=== PATIENT | female | born 1980 | race Caucasian/White ===

== ENCOUNTER 2018-02-18 22:26 | Inpatient (IN) | payer OTHER ==
[~2018-02-18] VITALS: Ht 157.5 cm; Wt 66.2 kg
[2018-02-18] MEDS ORDERED: RINGERS SOLUTION,LACTATED 1,000 ML IV PRN (22:52)
[2018-02-18] MEDS ORDERED: OXYTOCIN 30 UNITS/LACT RINGERS 500 ML IV ONE (22:52)
[2018-02-18] MEDS ORDERED: AMPICILLIN SODIUM 2 GM/NS 100 ML IV ONE (23:00)
[2018-02-18] MEDS ORDERED: LIDOCAINE/PF 1% 30 ML VIAL INJ PRN (23:00)
[2018-02-18] MEDS ORDERED: FentaNYL CITRATE-PF 100 MCG/2 ML VIAL IVP PRN (23:00)
[2018-02-18] MEDS ORDERED: METHYLERGONOVINE MALEATE 0.2 MG/ML VIAL IM PRN (23:00)
[2018-02-18] MEDS ORDERED: CITRIC ACID/SODIUM CITRATE 30 ML SOLUTION UDCUP PO PRN (23:00)
[2018-02-18] MEDS ORDERED: BETAMETHASONE SOLUSPAN 6 MG/ML 5 ML VIAL IM SCH (23:00)
[2018-02-18] MEDS ORDERED: METOCLOPRAMIDE HCL 5 MG/ML 2 ML VIAL IVP PRN (23:00)
[2018-02-18 23:32] VITALS: BP 106/64
[2018-02-18] MEDS: RINGERS SOLUTION,LACTATED 1,000 ML IV SCH (23:35)
[2018-02-18] MEDS ORDERED: prenatal vit PO (23:36)
[2018-02-19 00:05] LABS: BASOPHILS % (AUTO) 0.4 % (0.0-2.0); EOSINOPHILS % (AUTO) 0.4 % (1.0-6.0); HEMATOCRIT 32.9 % (36-46); HEMOGLOBIN 11.3 g/dL (12.0-16.0); LYMPHOCYTES # (AUTO) 1.5 K/uL (1.0-4.8); LYMPHOCYTES % (AUTO) 13.1 % (22.0-44.0); MEAN CORPUSCULAR HEMOGLOBIN 31.4 pg (26.0-34.0); MEAN CORPUSCULAR HGB CONC 34.3 G/dL (31.0-37.0); MEAN CORPUSCULAR VOLUME 92 fL (80-100); MONOCYTES # (AUTO) 0.9 K/uL (0.1-1.0); MONOCYTES % (AUTO) 7.4 % (2.0-9.0); NEUTROPHILS # (AUTO) 9.2 K/uL (1.8-7.7); NEUTROPHILS % (AUTO) 78.7 % (40.0-70.0); PLATELET COUNT (AUTO) 241 K/uL (150-450); RED BLOOD CELL COUNT(AUTO) 3.59 MIL/uL (4.00-5.20)
[2018-02-19] MEDS ORDERED: ROPIVACAINE HCL/PF 0.2% 100 ML ED ONE (00:52)
[2018-02-19] MEDS ORDERED: LIDOCAINE/PF 2% 5 ML VIAL ONE (00:52)
[2018-02-19] MEDS: RINGERS SOLUTION,LACTATED 1,000 ML IV SCH ×2 (00:55→02:49)
[2018-02-19] MEDS ORDERED: NALBUPHINE HCL 10 MG/ML VIAL IVP PRN (01:30)
[2018-02-19] MEDS ORDERED: ONDANSETRON HCL 4 MG/2 ML VIAL IVP PRN (01:30)
[2018-02-19] MEDS ORDERED: DiphenhydrAMINE HCL 50 MG/ML VIAL IVP PRN (01:30)
[2018-02-19] MEDS ORDERED: ROPIVACAINE HCL/PF 0.2% 100 ML ED PRN (01:30)
[2018-02-19] MEDS ORDERED: AMPICILLIN SODIUM 1 GM/NS 50 ML IV SCH (03:00)
[2018-02-19] MEDS ORDERED: IBUPROFEN 800 MG TABLET PO PRN (08:00)
[2018-02-19] MEDS ORDERED: OxyCODONE HCL/ACETAMINOPHEN 5-325 MG TABLET PO PRN ×2 (08:00)
[2018-02-19] MEDS ORDERED: MAGNESIUM HYDROXIDE SUSPENSION 30 ML UDCUP PO PRN (08:00)
[2018-02-19] MEDS ORDERED: GLYCERIN/WITCH HAZEL LEAF 40 PADS JAR TP PRN (08:00)
[2018-02-19] MEDS ORDERED: OXYGEN THERAPY IH SCH (08:00)
[2018-02-19] MEDS ORDERED: LANOLIN 7 GM OINTMENT TP PRN (08:00)
[2018-02-19] MEDS ORDERED: BENZOCAINE 20%/MENTHOL 56 GM SPRAY CANISTER TP PRN (08:00)
[2018-02-20 05:12] LABS: BASOPHILS % (AUTO) 0.1 % (0.0-2.0); EOSINOPHILS % (AUTO) 0.2 % (1.0-6.0); HEMATOCRIT 27.6 % (36-46); HEMOGLOBIN 9.4 g/dL (12.0-16.0); LYMPHOCYTES # (AUTO) 2.2 K/uL (1.0-4.8); LYMPHOCYTES % (AUTO) 15.7 % (22.0-44.0); MEAN CORPUSCULAR HEMOGLOBIN 31.3 pg (26.0-34.0); MEAN CORPUSCULAR HGB CONC 33.9 G/dL (31.0-37.0); MEAN CORPUSCULAR VOLUME 92 fL (80-100); MONOCYTES # (AUTO) 1.4 K/uL (0.1-1.0); MONOCYTES % (AUTO) 9.9 % (2.0-9.0); NEUTROPHILS # (AUTO) 10.4 K/uL (1.8-7.7); NEUTROPHILS % (AUTO) 74.1 % (40.0-70.0); PLATELET COUNT (AUTO)-OB 227 K/uL (150-450); RED BLOOD CELL COUNT(AUTO) 2.99 MIL/uL (4.00-5.20); RED CELL DISTRIBUTION WIDTH 12.9 % (11.5-14.5)
[2018-02-20] MEDS ORDERED: IBUP-2071 PO (09:47)
[2018-02-20] MEDS ORDERED: DSS100 PO (09:48)
[2018-02-20] MEDS ORDERED: FERR-89 PO (09:49)
== END 2018-02-20 10:45 | disposition home or self-care (01) | DRG 806 ==
LOC: 4S 22:26 → PREOBSVTOIN 04-05 22:58
PROVIDERS: ADMIT Obstetrics & Gynecology; ATTEND Obstetrics & Gynecology
PROC: 10E0XZZ Delivery of Products of Conception, External Approach (ICD-10-PCS; principal; 2018-02-19)
PROC: 0UQGXZZ Repair Vagina, External Approach (ICD-10-PCS; 2018-02-19)
PROC: 3E0R3BZ Introduction of Anesthetic Agent into Spinal Canal, Percutaneous Approach (ICD-10-PCS; 2018-02-19)
PROC: 00HU33Z Insertion of Infusion Device into Spinal Canal, Percutaneous Approach (ICD-10-PCS; 2018-02-19)
DX: O60.14X0 Preterm labor third trimester with preterm delivery third trimester, not applicable or unspecified (principal); O71.4 Obstetric high vaginal laceration alone; Z37.0 Single live birth; O69.81X0 Labor and delivery complicated by cord around neck, without compression, not applicable or unspecified; Z3A.35 35 weeks gestation of pregnancy
CPT/HCPCS: 86850; 86900; 86901; J0290; J0702; J2590; J2795; J3490; J7120